=== PATIENT | female | born 1995 | race Caucasian/White ===

== ENCOUNTER 2019-07-15 21:16 | Emergency (ER) | payer OTHER, BC ==
[2019-07-15] MEDS ORDERED: Oseltamivir 75 MG CAP ONE (22:02)
[2019-07-15] MEDS ORDERED: Ondansetron ODT 4 MG TAB ONE (22:02)
== END 2019-07-15 22:15 | disposition home or self-care (01) ==
LOC: MADERS 21:16
DX: J11.1 Influenza due to unidentified influenza virus with other respiratory manifestations (principal); R11.2 Nausea with vomiting, unspecified; F41.9 Anxiety disorder, unspecified; F32.9 Major depressive disorder, single episode, unspecified; F17.210 Nicotine dependence, cigarettes, uncomplicated
CPT/HCPCS: 99283; Q0162

== ENCOUNTER 2021-05-12 21:22 | Emergency (ER) | payer SELFPAY ==
[2021-05-12 21:50] LABS: Clarity Cloudy (Clear); Specific Gravity, Urine 1.016 (1.002-1.036)
[2021-05-12 21:51] LABS: Leukocyte Unable to Interpret (Negative); Nitrite Unable to Interpret (Negative)
[2021-05-12 21:52] LABS: Bilirubin Unable to Interpret (Negative); Glucose, Urine (Dipstick) Negative (Negative); Ketone, Urine Negative (Negative); Protein, Urine (Dipstick) Unable to Interpret mg/dL (Neg-Trace); Urobilinogen UNABLE TO INTERPRET mg/dL (Less than 2)
[2021-05-12 21:53] LABS: Blood, Urine Trace (Negative)
[2021-05-12 21:55] LABS: Pregu Control Bar Appear? YES (CONTROL BAR); Specific Gravity 1.016 (1.002-1.036)
[2021-05-12 21:59] LABS: Pregnancy Test - Urine (BHCG) Negative (Negative)
[2021-05-12] MEDS ORDERED: Ketorolac Tromethamine 30 MG/ML VIAL ONE (22:08)
[2021-05-12] MEDS ORDERED: cefTRIAXone\\ROCEPHIN 1 GM VIAL ONE (22:08)
[2021-05-12] MEDS ORDERED: Sterile Water 10 ML ONE (22:09)
[2021-05-12 22:10] LABS: Bacteria/HPF 1+ HPF (None Seen); Squamous Epithelial 21-50 HPF (0-3)
[2021-05-12 22:11] LABS: Pregu Control Background? CLEAR/WHITE (CLR/WHITE)
== END 2021-05-12 22:31 | disposition home or self-care (01) ==
LOC: MADERS 21:22
DX: N39.0 Urinary tract infection, site not specified (principal); R31.9 Hematuria, unspecified; F17.210 Nicotine dependence, cigarettes, uncomplicated
CPT/HCPCS: 81003; 81015; 81025; 96372; 99283; J0696; J1885

== ENCOUNTER 2025-04-18 01:23 | Emergency (ER) | payer SELFPAY ==
[2025-04-18] MEDS ORDERED: Acetaminophen 500 MG TAB ONE (01:49)
[2025-04-18] MEDS ORDERED: Ondansetron PF 4 MG/2 ML Vial ONE (01:49)
[2025-04-18] MEDS ORDERED: Cyclobenzaprine 10 MG TAB ONE (01:49)
== END 2025-04-18 02:20 ==
LOC: MADERS 01:23
DX: S60.410A Abrasion of right index finger, initial encounter (principal); R51.9 Headache, unspecified; R29.700 NIHSS score 0; F17.210 Nicotine dependence, cigarettes, uncomplicated; F17.290 Nicotine dependence, other tobacco product, uncomplicated; J44.9 Chronic obstructive pulmonary disease, unspecified; Y04.2XXA Assault by strike against or bumped into by another person, initial encounter; Y93.89 Activity, other specified; Z86.73 Personal history of transient ischemic attack (TIA), and cerebral infarction without residual deficits
CPT/HCPCS: 93005; 96374; J2405